=== PATIENT | male | born 1945 | race Caucasian/White ===

== ENCOUNTER → 2017-05-15 | Outpatient (CLI) | payer BC ==
[~2017-05-15] MED LIST: ASP325T PO; CALC-250 PO; CETI10CA PO; CYAN10007 PO; MULT-963 PO; NAPR220C11 PO; OMG1KC PO; PNT40TEC PO; ROSU5TAB PO
== END ==
LOC: CARD 10:38
PROVIDERS: ATTEND Physician Assistant
DX: I35.1 Nonrheumatic aortic (valve) insufficiency (principal); I27.2 Other secondary pulmonary hypertension; E78.2 Mixed hyperlipidemia; R94.31 Abnormal electrocardiogram [ECG] [EKG]
CPT/HCPCS: 93306

== ENCOUNTER 2017-10-02 16:26 | Emergency (ER) | payer BC ==
[~2017-10-02] VITALS: Ht 188 cm; Wt 110.7 kg
[2017-10-02] MEDS ORDERED: ROSU5TAB (16:52)
[2017-10-02] MEDS ORDERED: PANT40TA3 (16:52)
[2017-10-02 18:15] LABS: BASOPHILS % (AUTO) 1 % (0-10); EOSINOPHILS # (AUTO) 0.1 10^3/uL (0.0-0.3); EOSINOPHILS % (AUTO) 3 % (0-10); HEMATOCRIT 43 % (40-54); HEMOGLOBIN 14.4 G/DL (13.3-17.7); LYMPHOCYTES # (AUTO) 0.7 X 10^3 (1.0-4.0); LYMPHOCYTES % (AUTO) 23 % (12-44); MEAN CORPUSCULAR HEMOGLOBIN 31 PG (25-34); MEAN CORPUSCULAR HGB CONC 34 G/DL (32-36); MEAN CORPUSCULAR VOLUME 93 FL (80-99); MEAN PLATELET VOLUME 10.4 FL (7.4-10.4); MONOCYTES # (AUTO) 0.3 X 10^3 (0.0-1.0); MONOCYTES % (AUTO) 10 % (0-12); NEUTROPHILS # (AUTO) 1.8 X 10^3 (1.8-7.8); NEUTROPHILS % (AUTO) 63 % (42-75); PLATELET COUNT 164 10^3/uL (130-400); RED BLOOD COUNT 4.58 10^6/uL (4.35-5.85); RED CELL DISTRIBUTION WIDTH 13.3 % (10.0-14.5); WHITE BLOOD COUNT 2.9 10^3/uL (4.3-11.0)
[2017-10-02 18:18] LABS: INR 1.2 (0.8-1.4); PROTHROMBIN TIME PATIENT 15.3 SEC (12.2-14.7)
--- NOTE | 2017-10-02 18:23 | Diagnostic Imaging Report ---
INDICATION: Left arm pain and numbness. Noncontrast brain CT is performed. FINDINGS: There were no extra-axial fluid collections. No intracranial hemorrhage. No intracranial mass or mass effect. No midline shift. The ventricles are normal in size and position. There were no focal parenchymal abnormalities in the brain. Calvarial windows are unremarkable. IMPRESSION: Negative noncontrast brain CT. Dictated by: Dictated on workstation # [id number]
[2017-10-02 18:28] LABS: ALANINE AMINOTRANSFERASE 20 U/L (0-55); ALBUMIN 3.8 GM/DL (3.2-4.5); ALKALINE PHOSPHATASE 68 U/L (40-136); BILIRUBIN,TOTAL 1.3 MG/DL (0.1-1.0); BUN/CREATININE RATIO 15; CALCIUM 9.3 MG/DL (8.5-10.1); CARBON DIOXIDE 25 MMOL/L (21-32); CHLORIDE 103 MMOL/L (98-107); CREATININE SERUM 1.15 MG/DL (0.60-1.30); GFR ESTIMATED > 60; GLUCOSE 104 MG/DL (70-105); POTASSIUM 4.1 MMOL/L (3.6-5.0); SODIUM 139 MMOL/L (135-145); TOTAL PROTEIN 7.7 GM/DL (6.4-8.2)
--- NOTE | 2017-10-02 18:39 | ED Neurological Problem ---
General Chief Complaint: Cardiac/General Problems Stated Complaint: LT ARM NUMBESS Nursing Triage Note: C/O left arm pain and numbness while driving at 1500. lasted 10 min. no cp nausea sweating no pain at this time Nursing Sepsis Screen: No Definite Risk Source: patient, spouse History of Present Illness Time seen by provider: 18:00 Initial Comments PT ARRIVES VIA POV PRIOR TO MY ARRIVAL PT STATES AROUND 1500 TODAY, HE WAS DRIVING AND HAD NUMBNESS IN LEFT ARM. HAD SOME SLIGHT DIFFICULTY MOVING HIS ARM BECAUSE IT FELT NUMB, BUT NO ACTUAL MOTOR DEFICIT EPISODE LASTED 10 MINUTES AND HAS NOT RETURNED NO PAIN IN ARM NO CHEST PAIN NO SHORTNESS OF BREATH NO PALPITATIONS NO SWEATS NO NAUSEA/VOMITING NO HEADACHE NO VISION CHANGES PCP: DR. ARAIZA TRANSCRIPTION SPECIALIST: DR. BAXTER Allergies and Home Medications Allergies Coded Allergies: No Known Drug Allergies (Unverified , 10/02/17) Home Medications Aspirin 325 Mg Tab, 325 MG PO DAILY, (Reported) Calcium Carbonate/Vitamin D3 1 Each Tablet, 1 EACH PO, (Reported) Cetirizine Hcl 10 Mg Capsule, 10 MG PO, (Reported) Clopidogrel Bisulfate 75 Mg Tablet, 75 MG PO DAILY, #10 Prescribed by: VIOLETA CARRILLO on 10/02/17 1855 Cyanocobalamin 1,000 Mcg Tablet.sa, 1,000 MCG PO, (Reported) Multivitamin 1 Each Tablet, 1 EACH PO, (Reported) Naproxen Sodium 220 Mg Capsule, 220 MG PO PRN, (Reported) Carrie 3 Polyunsat Fatty Acids 1,000 Mg Cap, 1,000 MG PO DAILY, (Reported) Pantoprazole Sodium 40 Mg Tablet.dr, 1 TAB PO DAILY, #30 (Reported) Pantoprazole Sodium 40 Mg Tablet., (Reported) Rosuvastatin Calcium 5 Mg Tablet, 1 EACH PO DAILY, (Reported) Rosuvastatin Calcium 5 Mg Tablet, (Reported) Constitutional: no symptoms reported Eyes: No Symptoms Reported Ears, Nose, Mouth, Throat: no symptoms reported Respiratory: no symptoms reported Cardiovascular: no symptoms reported Gastrointestinal: no symptoms reported Genitourinary: no symptoms reported Musculoskeletal: no symptoms reported Skin: no symptoms reported Psychiatric/Neurological: See HPI, Denies Cognitive Dysfunction, Denies Headache, Numbness Endocrine: No Symptoms Reported Hematologic/Lymphatic: No Symptoms Reported Past Vrdvqct-Rduhlh-Hjzbhz Hx Patient Social History Alcohol Use: Denies Use Recreational Drug Use: No Smoking Status: Former Smoker Type Used: Cigarettes 2nd Hand Smoke Exposure: No Recent Foreign Travel: No Contact w/Someone Who Travel: No Recent Infectious Disease Expo: No Recent Hopitalizations: No Physical Abuse: No Sexual Abuse: No Mistreated: No Fear: No Immunizations Up To Date Tetanus Booster (TDap): Unknown Seasonal Allergies Seasonal Allergies: No Surgeries History of Surgeries: No Respiratory History of Respiratory Disorde: No Cardiovascular History of Cardiac Disorders: Yes (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) Cardiac Disorders: High Cholesterol Neurological History of Neurological Disord: No Genitourinary History of Genitourinary Disor: No Gastrointestinal History of Gastrointestinal Di: Yes Gastrointestinal Disorders: Gastroesophageal Reflux Musculoskeletal History of Musculoskeletal Dis: No Endocrine History of Endocrine Disorders: No HEENT History of HEENT Disorders: No Cancer History of Cancer: No Psychosocial History of Psychiatric Problem: No Suicide Risk Score: 0 Integumentary History of Skin or Integumenta: No Blood Transfusions History of Blood Disorders: Yes (CHRONIC BENIGN NEUTROPENIA) Physical Exam Vital Signs Vital Sign - Last 12Hours 10/02/17 10/02/17 16:28 19:05 Temp 97.7 Pulse 71 Resp 20 B/P (MAP) 127/91 (103) Pulse Ox 97 O2 Delivery Room Air Capillary Refill : Less Than 3 Seconds General Appearance: WD/WN, no apparent distress HEENT: PERRL/EOMI Neck: non-tender, full range of motion, supple, normal inspection, No carotid bruit Respiratory: normal breath sounds, no respiratory distress, no accessory muscle use Cardiovascular: normal peripheral pulses, regular rate, rhythm, no edema, no gallop, no JVD, no murmur Peripheral Pulses: 2+ Dorsalis Pedis (R), 2+ Left Dors-Pedis (L), 2+ Radial Pulses (R), 2+ Radial Pulses (L) Gastrointestinal: normal bowel sounds, non tender, soft, no organomegaly, no pulsatile mass Back: normal inspection Extremities: normal range of motion, non-tender, normal inspection, no pedal edema, no calf tenderness, normal capillary refill 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, no motor/sensory deficits, alert, normal mood/affect, oriented x 3, No abnormal cerebellar tests Crainal Nerves: normal hearing, normal speech, PERRL Coordination/Gait: normal finger to nose, normal gait Motor/Sensory: no motor deficit, no sensory deficit, no pronator drift Reflexes: 2+ Knee (R), 2+ Knee (L), 2+ Ankle (R), 2+ Ankle (L) Skin: normal color, warm/dry Progress/Results/Core Measures Results/Orders Lab Results Laboratory Tests Test 10/02/17 16:40 Range/Units White Blood Count 2.9 L 4.3-11.0 10^3/uL Red Blood Count 4.58 4.35-5.85 10^6/uL Hemoglobin 14.4 13.3-17.7 G/DL Hematocrit 43 40-54 % Mean Corpuscular Volume 93 80-99 FL Mean Corpuscular Hemoglobin 31 25-34 PG Mean Corpuscular Hemoglobin Concent 34 32-36 G/DL Red Cell Distribution Width 13.3 10.0-14.5 % Platelet Count 164 130-400 10^3/uL Mean Platelet Volume 10.4 7.4-10.4 FL Neutrophils (%) (Auto) 63 42-75 % Lymphocytes (%) (Auto) 23 12-44 % Monocytes (%) (Auto) 10 0-12 % Eosinophils (%) (Auto) 3 0-10 % Basophils (%) (Auto) 1 0-10 % Neutrophils # (Auto) 1.8 1.8-7.8 X 10^3 Lymphocytes # (Auto) 0.7 L 1.0-4.0 X 10^3 Monocytes # (Auto) 0.3 0.0-1.0 X 10^3 Eosinophils # (Auto) 0.1 0.0-0.3 10^3/uL Basophils # (Auto) 0.0 0.0-0.1 10^3/uL Prothrombin Time 15.3 H 12.2-14.7 SEC INR Comment 1.2 0.8-1.4 Activated Partial Thromboplast Time 29 24-35 SEC Sodium Level 139 135-145 MMOL/L Potassium Level 4.1 3.6-5.0 MMOL/L Chloride Level 103 98-107 MMOL/L Carbon Dioxide Level 25 21-32 MMOL/L Anion Gap 11 5-14 MMOL/L Blood Urea Nitrogen 17 7-18 MG/DL Creatinine 1.15 0.60-1.30 MG/DL Estimat Glomerular Filtration Rate > 60 BUN/Creatinine Ratio 15 Glucose Level 104 70-105 MG/DL Calcium Level 9.3 8.5-10.1 MG/DL Magnesium Level 2.0 1.8-2.4 MG/DL Total Bilirubin 1.3 H 0.1-1.0 MG/DL Aspartate Amino Transf (AST/SGOT) 23 5-34 U/L Alanine Aminotransferase (ALT/SGPT) 20 0-55 U/L Alkaline Phosphatase 68 40-136 U/L Troponin I < 0.30 <0.30 NG/ML Total Protein 7.7 6.4-8.2 GM/DL Albumin 3.8 3.2-4.5 GM/DL My Orders Orders - GERARDOVIOLETA K DO Saline Lock/Iv-Start (10/02/17 18:08) Monitor-Rhythm Ecg Trace Only (10/02/17 18:08) Cbc With Automated Diff (10/02/17 18:08) Comprehensive Metabolic Panel (10/02/17 18:08) Magnesium (10/02/17 18:08) Protime With Inr (10/02/17 18:08) Partial Thromboplastin Time (10/02/17 18:08) Troponin I (10/02/17 18:08) Ct Head Wo-R/O Stroke (10/02/17 18:08) Clopidogrel Tablet (Plavix Tablet) (10/02/17 19:00) Medications Given in ED Current Medications Medications Dose Ordered Sig/Danial Route Start Time Stop Time Status Last Admin Dose Admin Clopidogrel Bisulfate 75 mg ONCE ONCE PO 10/02/17 19:00 10/02/17 19:01 DC 10/02/17 19:03 75 MG Vital Signs/I&O Vital Sign - Last 12Hours 10/02/17 10/02/17 16:28 19:05 Temp 97.7 97.7 Pulse 71 65 Resp 20 20 B/P (MAP) 127/91 (103) Pulse Ox 97 95 O2 Delivery Room Air Blood Pressure Mean: 103 Progress Note : Progress Note NO SYMPTOMS DURING ER STAY PT STATES HE ONLY TAKES 81 MG ASPIRIN DAILY. ECG Initial ECG Impression Time: 17:08 Initial ECG Rate: 69 Initial ECG Rhythm: Normal Sinus Initial ECG Impression: Nonspecific Changes (IVCD) Diagnostic Imaging Comments CT HEAD--NO ACUTE PROCESS, PER RADIOLOGIST REPORT @ 1838 Reviewed: Reviewed by Me Departure Impression Impression: Primary Impression: TRANSIENT LEFT ARM PARESTHESIAS Additional Impression: Chronic benign neutropenia Disposition: HOME, SELF-CARE Condition: Stable Departure-Patient Inst. Referrals: ARIEL ARAIZA DO (PCP/Family) Primary Care Physician Patient Instructions: Paresthesias (DC) Add. Discharge Instructions: RETURN TO ER IF SYMPTOMS RETURN CONTINUE YOUR REGULAR MEDICATIONS PRESCRIBED FOLLOW UP WITH DR. ARAIZA ON THURSDAY FOR FURTHER CARE All discharge instructions reviewed with patient and/or family. Voiced understanding. Scripts Clopidogrel Bisulfate (Plavix) 75 Mg Tablet 75 MG PO DAILY, #10 TAB Prov: VIOLETA CARRILLO DO 10/02/17 VIOLETA CARRILLO DO Oct 02, 2017 18:39
[2017-10-02] MEDS ORDERED: CLOP75TA69 PO (18:55)
[2017-10-02] MEDS ORDERED: CLOPIDOGREL 75 MG (PLAVIX) TABLET PO ONE (19:00)
[2017-10-02 19:05] VITALS: BP 139/98
== END 2017-10-02 19:06 | disposition home or self-care (01) ==
LOC: EDUNIT# 16:26 → ER 16:27
DX: R20.2 Paresthesia of skin (principal); D70.9 Neutropenia, unspecified; E78.00 Pure hypercholesterolemia, unspecified; K21.9 Gastro-esophageal reflux disease without esophagitis; Z79.82 Long term (current) use of aspirin; Z87.891 Personal history of nicotine dependence
CPT/HCPCS: 36415; 70450; 80053; 83735; 84484; 85025; 85610; 85730; 93005

== ENCOUNTER → 2017-11-25 | Outpatient (CLI) | payer BC ==
[~2017-11-25] VITALS: Ht 185.4 cm; Wt 117.9 kg
[~2017-11-25] MED LIST changes: +CATHETER FLUSH 10 ML SYR IV PRN; +CLOP75TA69 PO; +PANT40TA3; +ROSU5TAB
[2017-11-25 09:30] VITALS: BP 156/110
--- NOTE | 2017-11-26 01:07 | STRESS TEST ---
DATE OF SERVICE: 11/25/2017 EXERCISE MYOVIEW STRESS TEST REPORT REFERRING PHYSICIAN: Sunny Worrell DO. Baseline heart rate is 75. Baseline blood pressure is 122/80. Baseline EKG is sinus rhythm with no ischemic changes. In summary, patient was injected with 10.85 mCi of technetium-99 Myoview and the resting images were obtained. Then, the patient started exercising with a baseline heart rate, blood pressure and EKG mentioned above. He was able to exercise for a total of 6 minutes on standard Kang protocol, achieving maximum heart rate of 124, with peak exercise level. EKG was showing nondiagnostic changes. Blood pressure was 156/110. During recovery, heart rate and blood pressure returned to baseline. EKG returned to baseline. The resting and stress images were reviewed and compared in the short axis, horizontal long axis, and vertical long axis views. Review of the images showed diaphragmatic attenuation with mild decreased uptake at the mid to apical inferior wall with subtle reversibility. SSS is 5, SDS 4, and TID value 0.95. On the gated images, the left ventricle appeared to be normal size with normal contractility. Calculated ejection fraction is 60%. CONCLUSION: 1. Fair exercise tolerance, a total of 6 minutes on standard Kang protocol, total of 7.3 METS, achieving 84% of maximum expected heart rate. 2. Appropriate heart rate and blood pressure response to exercise returned to baseline during recovery. 3. Nondiagnostic EKG changes with exercise returned to baseline during recovery. 4. Diaphragmatic attenuation with mild decreased uptake at the mid to apical inferior wall with subtle reversibility, probably due to diaphragmatic attenuation. 5. Normal left ventricular size with normal contractility. Calculated ejection fraction is 60%. Job ID: [id number] DocumentID: [id number] Dictated Date: 11/25/2017 17:25:22 Mirror Machine Feeder Date: 11/25/2017 22:57:22 Dictated By: ROSEMARIE BAXTER MD
== END ==
LOC: CARD 08:21
PROVIDERS: ATTEND Internal Medicine Cardiovascular Disease
DX: I35.1 Nonrheumatic aortic (valve) insufficiency (principal); R07.89 Other chest pain; I51.9 Heart disease, unspecified; E78.5 Hyperlipidemia, unspecified; R55 Syncope and collapse
CPT/HCPCS: 78452; 93017

== ENCOUNTER → 2019-08-01 | Outpatient (CLI) | payer BC ==
[~2019-08-01] VITALS: Ht 187 cm; Wt 119.0 kg
[2019-08-01 09:45] VITALS: BP 111/89
[2019-08-01 09:52] VITALS: BP 207/112
--- NOTE | 2019-08-01 14:36 | STRESS TEST ---
DATE OF SERVICE: 08/01/2019 EXERCISE MYOVIEW STRESS TEST REPORT REFERRING PHYSICIAN: Dr. Worrell. Baseline heart rate is 64. Baseline blood pressure 111/89. Baseline EKG is sinus rhythm with no ischemic changes. In summary, the patient was injected with 10.10 mCi of technetium-99 Myoview and the resting images were obtained. Then, the patient started exercising with a baseline heart rate, blood pressure and EKG mentioned above. The patient was able to exercise for 6 minutes 45 seconds on standard Kang protocol. With peak exercise level, EKG was showing minimal nondiagnostic changes. Blood pressure 207/112, was injected with 31.2 mCi of technetium-99 Myoview. During recovery, heart rate and blood pressure returned to baseline. EKG returned to baseline. The resting and stress images were reviewed and compared in the short axis, horizontal long axis, and vertical long axis views. Review of the images showed diaphragmatic attenuation with mild decreased uptake involving the mid to apical inferior wall and inferolateral wall with mild reversibility. SSS is 6, SDS 4, TID value 0.8. On the gated images, the left ventricle appeared to be normal size with normal contractility. Calculated ejection fraction 60%. CONCLUSION: 1. Fair exercise tolerance, a total of 6 minutes 45 seconds on standard Kang protocol, total of 8.1 METS achieving 91% of maximum expected heart rate. 2. Severe hypertensive response to exercise with peak blood pressure 207/112, returned to baseline during recovery. 3. Nondiagnostic EKG changes with exercise returned to baseline during recovery. 4. Diaphragmatic attenuation with mild ischemia involving the mid to apical inferior wall and inferolateral wall. 5. Normal left ventricular size with normal contractility. Calculated ejection fraction 60%. Job ID: [id number] DocumentID: [id number] Dictated Date: 08/01/2019 11:46:08 Truant Officer Date: 08/01/2019 14:36:06 Dictated By: ROSEMARIE BAXTER MD
== END ==
LOC: CARD 08:15
PROVIDERS: ATTEND Internal Medicine Cardiovascular Disease
DX: I25.9 Chronic ischemic heart disease, unspecified (principal); I51.7 Cardiomegaly; E78.5 Hyperlipidemia, unspecified; I35.1 Nonrheumatic aortic (valve) insufficiency
CPT/HCPCS: 78452; 93017; 93306

== ENCOUNTER 2019-08-05 06:50 | Day surgery (SDC) | payer BC ==
[2019-08-05] VITALS (13 sets, daily range): BP systolic 112–153; BP diastolic 72–94
[~2019-08-05] VITALS: Ht 188 cm; Wt 118.0 kg
[~2019-08-05 06:50] MED LIST changes: -CATHETER FLUSH 10 ML SYR IV PRN; -PANT40TA3; +PANT40TA3 PO; -ROSU5TAB
[2019-08-05] MEDS ORDERED: HEParin (CATH LAB) 2,000 ML IV ONE (06:52)
[2019-08-05] MEDS ORDERED: LIDOCAINE 1% INJ 20 ML 20 ML VIAL ONE (06:52)
[2019-08-05] MEDS ORDERED: NS IV 1000 ML 1,000 ML ONE (06:52)
[2019-08-05] MEDS ORDERED: NS IV 1000 ML 1,000 ML IV SCH (07:00)
--- NOTE | 2019-08-05 07:10 | Diagnostic Imaging Report ---
INDICATION: Abnormal stress, hypertension, hyperlipidemia, congestive heart failure. TECHNIQUE: Single view chest 7:03 AM. CORRELATION STUDY: None FINDINGS: Heart size is enlarged. Mediastinum compression relatively unremarkable. Vasculature within normal limits. Limited depth of inspiration with bibasilar areas of likely atelectasis. IMPRESSION: 1. Cardiac enlargement without overt failure. Bibasilar areas of atelectasis. Trace effusions on excluded. Dictated by: Dictated on workstation # [id number]
[2019-08-05 07:19] LABS: HEMOGLOBIN 14.5 G/DL (13.3-17.7); RED CELL DISTRIBUTION WIDTH 13.6 % (10.0-14.5); WHITE BLOOD COUNT 3.7 10^3/uL (4.3-11.0)
[2019-08-05] MEDS ORDERED: MIDAZOLAM 5 MG/5 ML (VERSED) VIAL ONE (07:28)
[2019-08-05] MEDS ORDERED: fentaNYL INJECTION 100 MCG/2 ML AMP ONE (07:28)
[2019-08-05] MEDS ORDERED: HEParin 1000 UNIT/ML (10ML VIAL) FOR BOLUS ONE (07:29)
[2019-08-05] MEDS ORDERED: VERAPAMIL 5 MG/2 ML (CALAN) VIAL IV ONE (07:29)
[2019-08-05] MEDS ORDERED: NITRO DRIP 25000 MCG/D5W 250 ML IV ONE (07:29)
[2019-08-05 07:31] LABS: INR 1.2 (0.8-1.4); PROTHROMBIN TIME PATIENT 15.3 SEC (12.2-14.7)
[2019-08-05] MEDS ORDERED: CETI10TA17 PO (07:32)
[2019-08-05] MEDS ORDERED: CHOL20002 PO (07:32)
[2019-08-05] MEDS ORDERED: ASPI-983 PO (07:32)
[2019-08-05] MEDS ORDERED: OMEG1CAP24 PO (07:36)
[2019-08-05] MEDS ORDERED: NAPR-1033 PO (07:36)
[2019-08-05] MEDS ORDERED: CYAN500T52 SL (07:36)
[2019-08-05] MEDS ORDERED: SILD100T PO (07:37)
[2019-08-05] MEDS ORDERED: VITA-240 PO (07:38)
[2019-08-05 07:39] LABS: ALANINE AMINOTRANSFERASE 18 U/L (0-55); ALKALINE PHOSPHATASE 66 U/L (40-136); BILIRUBIN,TOTAL 1.3 MG/DL (0.1-1.0); BUN/CREATININE RATIO 11; CALCIUM 9.5 MG/DL (8.5-10.1); CARBON DIOXIDE 21 MMOL/L (21-32); CHLORIDE 106 MMOL/L (98-107); CREATININE SERUM 1.07 MG/DL (0.60-1.30); GFR ESTIMATED > 60; GLUCOSE 91 MG/DL (70-105); POTASSIUM 3.8 MMOL/L (3.6-5.0); SODIUM 138 MMOL/L (135-145); TOTAL PROTEIN 7.7 GM/DL (6.4-8.2)
[2019-08-05] MEDS ORDERED: methylPREDNISolone 125 MG (Solu-MEDROL) VIAL ONE (07:55)
[2019-08-05] MEDS ORDERED: diphenhydrAMINE 50 MG/ML INJ (BENADRYL) ONE (07:55)
[2019-08-05] MEDS ORDERED: NS (IVPB) 0 ML ONE (08:53)
[2019-08-05] MEDS ORDERED: ATROPINE INJECTION 1 MG/10 ML SYR (ABBOTT) ONE (08:53)
[2019-08-05] MEDS ORDERED: niCARdipine 25 MG/10 ML (CARDENE) AMP IV ONE (08:53)
[2019-08-05] MEDS ORDERED: TICAGRELOR 90 MG TABLET (BRILINTA) PO ONE (09:18)
[2019-08-05] MEDS ORDERED: ASPIRIN 325 MG (5 GR) TABLET ONE (09:18)
--- NOTE | 2019-08-05 09:19 | Cardiac Procedure Note-CS/ASA ---
Pre-Procedure Note Pre-Op Procedure Note H&P Reviewed The H&P was reviewed, patient examined and no changes noted. Date H&P Reviewed: Aug 05, 2019 Time H&P Reviewed: 09:19 Conscious Sedation Pre-Proced Time 09:19 ASA Score 3 For ASA 3 and 4: Consider anesthesia and medical clearance. Also, for patients with a history of failed moderate sedation consider anesthesia. Airway Lungs Heart ASA score ASA 1: a normal healthy patient ASA 2: a patient with a mild systemic disease (mid diabetes, controlled hypertension, obesity x ASA 3: a patient with a severe systemic disease that limits activity (angina, COPD, prior Myocardial infarction) ASA 4: a patient with an incapacitating disease that is a constant threat to life (CHF, renal failure) ASA 5: a moribund patient not expected to survive 24 hrs. (ruptured aneurysm) ASA 6: a declared brain- patient whose organs are being harvested. For emergent operations, add the letter E after the classification Mallampati Classification Grade 3 Sedation Plan Analgesia, Amnesia, Plan communicated to team members, Discussed options with patient/fam, Discussed risks with patient/fam The patient is an appropriate candidate to undergo the planned procedure, sedation, and anesthesia. The patient immediately re-assessed prior to indication. ROSEMARIE BAXTER MD Aug 05, 2019 09:19 POS
--- NOTE | 2019-08-05 09:28 | Cardiac Cath Report ---
Cardiac Cath Report Physician (s)/Urology Nurse (s) Physician ROSEMARIE BAXTER MD Pre-Procedure Diagnosis Pre-Procedure Diagnosis: Coronary artery disease Post-Procedure Note Procedure Start Date: Aug 05, 2019 Name of Procedure: Left heart catheterization Aortic root angiogram Stent to the right coronary artery Findings/Procedure Note PROCEDURE NOTE: 73 years old gentleman with history of hypertension and hyperlipidemia, had an abnormal stress test, scheduled for cardiac catheterization possible PTCA. After explaining the procedure to the patient, all pros and cons were explained, all questions were answered. The patient signed the consent and then he was placed on the cardiac catheterization laboratory. Groin was prepped SL fashion local anesthesia was used. Sheath placed in the right radial artery, had difficulty advancing the catheter through the aorta, advance the catheter all the way through the sheath and I can barely reached the coronary system, it was not turning well with manipulation. I did not selective angiogram to the right and left coronary system at that point patient appeared to have significant lesions in the right coronary artery and the LAD I decided to proceed with Vin and access. 6 Czech sheath was placed in the right femoral artery, Erika left catheter was advanced to the left coronary artery, again I had to advance the Erika left through the groin all the way up to the sheath to reach the coronary system, angiogram was done then I advanced Erika right guide to the right coronary system, patient received total of 7000 units of heparin, BMW wire was advanced through the right coronary artery has severe stenosis at the midportion, I was able to advance a balloon easily and predilated the lesion then I had difficulty advancing the stent, I used Frances 3.5 x 18 mm expanded to 3.66 mm under 16 edward, I tried noncompliant balloon and 4.0 balloon and I was unable to advance them through the proximal portion of the right coronary artery. At that point I decided to stop angiogram showed excellent results. Advanced pigtail catheter for the left ventricular cavity, pressure was measured then back LV to aorta was done and I evaluated the aortic root which showed prominent aortic root and ascending aorta. No aneurysm was noted. At the end of the procedure the sheath was removed. Closure device was used FINDINGS: Hemodynamics LV 126/24, end-diastolic pressure of 24 Aorta 141/84 mean of 108 ANATOMY: Left Main is mildly aneurysmal with slow flow nonobstructive disease Left Anterior Descending has moderate diffuse ectasia with severe stenosis at the midportion involving small diagonal and septal branches, distally there is also a severe stenosis that will be treated at a later point Left Circumflex is moderate in size with no obstructive disease Right Coronory Artery is large dominant artery with diffuse ectasia, severe stenosis at the midportion successful complex procedure with balloon angioplasty then deployment of Frances 3.5 x 18 mm expanded to 3.6 mm with excellent results LV Gram was not done, pressure was measured Aorta evaluation showed prominent aortic root and aortic cusp and ascending aorta, no dissection was noted. CONCLUSION: 1. 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 Severe stenosis in a dominant right coronary artery, successful complex procedure with balloon angioplasty then deployment of 3.5 x 18 Frances stent expanded to 3.6 mm with excellent results, I was unable to advance a 4.0 balloon in the proximal portion of the right coronary artery due to the ectasia and the angle of the proximal portion 3. Prominent aortic root and ascending aorta and aortic arch. 4. Mildly elevated left ventricular end-diastolic pressure DISCUSSION AND RECOMMENDATION: patient was started on aspirin and Brilinta, I will continue maximizing medical therapy, planning to evaluate the LAD and possible intervention at a later point, I will consider referral to a tertiary care center Anesthesia Type: Conscious Sedation Estimated blood loss (mL): 35 ml Contrast Amount: 165 ml Total Radiation Dose: 1993 mGy Post-Procedure Diagnosis Post-operative diagnosis: Chest pain Coronary artery disease Hypertension Hyperlipidemia ROSEMARIE BAXTER MD Aug 05, 2019 09:28 POS
[2019-08-05] MEDS ORDERED: NON-FORMULARY MEDICATION 1 EA EA (Cetirizine HCl 10 MG) PO PRN (09:30)
[2019-08-05] MEDS ORDERED: PATIENT MAY USE OWN MEDS, ALL PO SCH (09:30)
[2019-08-05] MEDS ORDERED: LORATADINE (CLARITIN) 10 MG TAB PO PRN (10:30)
--- NOTE | 2019-08-05 11:13 | NUR ---
SPOKE WITH THE PT WELL CALLING [facility] TO COMPLETE THE MED REC. PT (AND HIS ) WERE ABLE TO TELL ME HOW HE TAKES ALL HIS MEDICATIONS. THE FOLLOWING ARE FILL DATES FROM [facility]: 05-12-2019 VIAGRA #6/USES PRN 07-14-2019 PANTOPRAZOLE #30/30DS 07-14-2019 ROSUVASTATIN #DS OTC MEDS: ASPIRIN CETIRIZINE VIT D VIT B12 VIT E NAPROXEN FISH OIL
--- NOTE | 2019-08-05 15:37 | NUR ---
Pt is Sabianism. Stretcher Drier Operator provided prayer and Communion.
[2019-08-05] MEDS ORDERED: OMEGA 3 (FISH OIL) 1000 MG CAP PO SCH (17:00)
[2019-08-05] MEDS: NS IV 1000 ML 1,000 ML IV SCH ×2 (19:19→19:38)
[2019-08-05] MEDS ORDERED: ROSUVASTATIN 5 MG (CRESTOR) TABLET PO SCH (21:00)
[2019-08-05] MEDS ORDERED: TICAGRELOR 90 MG TABLET (BRILINTA) PO SCH (21:00)
[2019-08-06 03:28] LABS: HEMOGLOBIN 14.1 G/DL (13.3-17.7); RED CELL DISTRIBUTION WIDTH 13.8 % (10.0-14.5); WHITE BLOOD COUNT 7.4 10^3/uL (4.3-11.0)
[2019-08-06 03:53] LABS: BUN/CREATININE RATIO 16; CALCIUM 9.3 MG/DL (8.5-10.1); CARBON DIOXIDE 20 MMOL/L (21-32); CHLORIDE 108 MMOL/L (98-107); GFR ESTIMATED > 60; GLUCOSE 129 MG/DL (70-105); POTASSIUM 4.1 MMOL/L (3.6-5.0); SODIUM 136 MMOL/L (135-145)
[2019-08-06 03:55] VITALS: BP 118/74
[2019-08-06] MEDS ORDERED: TICA90TA PO (04:18)
--- NOTE | 2019-08-06 04:21 | Cardiology Progress Note ---
Subjective Date Seen by Provider: Aug 06, 2019 Time Seen by Provider: 04:18 Subjective/Events-last exam Patient is laying down in bed, feeling well. Groin is healing well Review of Systems General: No Chills, No Night Sweats, No Fatigue, No Malaise, No Appetite, No Other HEENT: No Head Aches, No Visual Changes, No Eye Pain, No Ear Pain, No Dysphasia, No Sinus Congestion, No Post Nasal Drip, No Sore Throat, No Other Pulmonary: No Dyspnea, No Cough, No Pleuritic Chest Pain, No Other Cardiovascular: No: Chest Pain, Palpitations, Orthopnea, Paroxysmal Noc. Dyspnea, Edema, Lt Headedness, Other Objective-Cardiology Exam Last Set of Vital Signs Vital Signs 08/06/19 03:55 Temp 37.0 Pulse 85 Resp 20 B/P (MAP) 118/74 (89) Pulse Ox 94 O2 Delivery Room Air Capillary Refill : Less Than 3 Seconds I&O Intake and Output 08/06/19 00:00 Intake Total 1000 ml Balance 1000 ml Intake IV Total 1000 ml General: Alert, Oriented X3, Cooperative HEENT: Atraumatic, PERRLA Neck: Supple, No JVD, No Thyromegaly Lungs: Clear to Auscultation, Normal Air Movement Heart: Regular Rate, Normal S1, Normal S2, No Murmurs Abdomen: Normal Bowel Sounds, Soft, No Tenderness, No Hepatosplenomegaly, No Masses Extremities: No Clubbing, No Cyanosis, No Edema, Normal Pulses, No Tenderness/Swelling Skin: No Rashes, No Breakdown, No Significant Lesion Neuro: Normal Gait, Normal Speech, Strength at 5/5 X4 Ext, Normal Tone, Sensation Intact Psych/Mental Status: Mental Status NL, Mood NL Results Lab Laboratory Tests 08/05/19 07:08 08/06/19 03:10 A/P-Cardiology Admission Diagnosis Chest pain Coronary artery disease Hypertension Hyperlipidemia Assessment/Plan Chest pain, improved Coronary artery disease, status post cardiac catheterization and stenting to the right coronary artery, will need to have staged intervention to the LAD, probably need tertiary care center Cath findings: 1. 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 Severe stenosis in a dominant right coronary artery, successful complex procedure with balloon angioplasty then deployment of 3.5 x 18 Frances stent expanded to 3.6 mm with excellent results, I was unable to advance a 4.0 balloon in the proximal portion of the right coronary artery due to the ectasia and the angle of the proximal portion 3. Prominent aortic root and ascending aorta and aortic arch. 4. Mildly elevated left ventricular end-diastolic pressure Hypertension, monitor blood pressure Hyperlipidemia, maintained on Crestor, continue to monitor History of anaphylactic shock, blood pressure stable Mild bilateral carotid stenosis ROSEMARIE BAXTER MD Aug 06, 2019 04:21 POS
--- NOTE | 2019-08-06 04:25 | Discharge Inst-Post CATH ---
Discharge Inst-CATH/EP Problems Reviewed?: Yes Post Cardiac Cath/EP D/C Inst Follow Up/Plan Appointment with Dr. BAXTER's office in 2-4 weeks <b>CARDIAC CATH/EP PROCEDURE DISCHARGE INSTRUCTIONS</b> ACTIVITY * Go Home directly and rest. * Limit activity of the leg (or wrist if it was used) for 7 days including aerobics, swimming, jogging, bicycling, etc. * Restrict stair-climbing for 7 days if possible, if not, climb up with your non-cath leg, then bring together on the same step. * Avoid lifting, pushing, pulling or excessive movement of the affected extremity for 7 days. * Customary sexual activity may be resumed after 2 days-use caution not to use a position that strains or causes pain to the affected extremity. * No driving for 24 hours. * NO SMOKING. * Avoid straining for bowel movements for 7 days. * Gentle walking on level ground is allowed. * Returning to work will depend on the type of procedure and the results. Your doctor will discuss this with you. CALL YOUR DOCTOR FOR ANY OF THE FOLLOWING: *If bleeding from the puncture site occurs- Apply gentle pressure to site with clean cloth and call your doctor or EMS. * If a knot or lump forms under the skin, increases in size, or causes pain. * If bruising appears to be worsening or moving further down your leg instead of disappearing. * Temperature above 101 F. CARE OF YOUR GROIN INCISION; * Bruising or purple discoloration of the skin near the puncture site is common. * You may shower only, no bathtub bathing for 5 days. Be careful to avoid slipping as your leg may feel stiff. * If a closure device was used on your femoral artery, please see the attached guide regarding care of the device and your leg. * Leave dressing on FOR 24 hours. CARE OF YOUR WRIST INCISION; * Bruising or purple discoloration of the skin near the puncture site is common. * You may shower. * DO NOT submerge wrist. * Leave dressing on FOR 24 hours. ROSEMARIE BAXTER MD Aug 06, 2019 04:25 POS
[2019-08-06] MEDS: NS IV 1000 ML 1,000 ML IV SCH (05:20)
[2019-08-06] MEDS ORDERED: PANTOPRAZOLE 40 MG (PROTONIX) TAB PO SCH (07:00)
[2019-08-06 08:00] VITALS: BP 118/70
[2019-08-06] MEDS ORDERED: ASPIRIN E.C. 81 MG (ECOTRIN) TAB PO SCH (09:00)
[2019-08-06 09:20] VITALS: BP 118/68
== END 2019-08-06 09:30 | disposition home or self-care (01) ==
LOC: CATH 06:50 → CSD 10:05 → CATH 08-06 09:30
PROVIDERS: ATTEND Internal Medicine Cardiovascular Disease
DX: I25.10 Atherosclerotic heart disease of native coronary artery without angina pectoris (principal); E78.5 Hyperlipidemia, unspecified; R94.39 Abnormal result of other cardiovascular function study; I11.0 Hypertensive heart disease with heart failure; I50.30 Unspecified diastolic (congestive) heart failure; I27.20 Pulmonary hypertension, unspecified; I35.1 Nonrheumatic aortic (valve) insufficiency; Z88.3 Allergy status to other anti-infective agents; Z79.82 Long term (current) use of aspirin; Z80.9 Family history of malignant neoplasm, unspecified; Z82.49 Family history of ischemic heart disease and other diseases of the circulatory system; Z79.899 Other long term (current) drug therapy
CPT/HCPCS: 36415; 71045; 80048; 80053; 85027; 85610; 85730; 87081; 93005; 93458; 93567

== ENCOUNTER 2019-12-02 09:58 | Outpatient (RCR) | payer BC ==
[~2019-12-02 09:58] MED LIST changes: +ASPI-983 PO; +CETI10TA17 PO; +CHOL20002 PO; +CYAN500T52 SL; +NAPR-1033 PO; +OMEG1CAP24 PO; +SILD100T PO; +TICA90TA PO; +VITA-235 PO
== END 2020-01-17 | disposition home or self-care (01) ==
LOC: CR 09:58
PROVIDERS: ATTEND Internal Medicine Cardiovascular Disease
DX: Z48.812 Encounter for surgical aftercare following surgery on the circulatory system (principal); Z95.5 Presence of coronary angioplasty implant and graft
CPT/HCPCS: 93798

== ENCOUNTER → 2020-12-28 | Outpatient (CLI) | payer BC ==
[~2020-12-28] MED LIST changes: +ASPI-1238 PO; -ASPI-983 PO; -PANT40TA3 PO; +PANT40TA52 PO; -VITA-235 PO; +VITA-261 PO
== END ==
LOC: CARD 14:43
PROVIDERS: ATTEND Internal Medicine Cardiovascular Disease
DX: I11.9 Hypertensive heart disease without heart failure (principal); I35.0 Nonrheumatic aortic (valve) stenosis
CPT/HCPCS: 93306

== ENCOUNTER → 2021-01-23 | Outpatient (CLI) | payer BC ==
[~2021-01-23] VITALS: Ht 187 cm; Wt 98.0 kg
[~2021-01-23] MED LIST changes: +CATHETER FLUSH 10 ML SYR IV PRN; +REGADENOSON 0.4 MG/5 ML SYR (LEXISCAN) IV ONE
[2021-01-23 09:26] VITALS: BP 136/90
--- NOTE | 2021-01-23 14:41 | Cardiology Stress Test Report ---
Stress Test Report Date of Procedure/Referring: Date of Procedure: January 23, 2021 PCP Rosemarie Mark MD Admitting Physician Sunny Worrell DO Indications: HTN Baseline Heart Rate: 70 Baseline Blood Pressure: Blood Pressure Systolic: 136 Blood Pressure Diastolic: 90 Baseline Vitals Vital Signs Date Time Temp Pulse Resp B/P (MAP) Pulse Ox O2 Delivery O2 Flow Rate FiO2 01/23/21 09:26 70 136/90 (105) 97 Baseline EKG: Baseline EKG: NSR Summary After explaining the procedure to the patient, he signed a consent and then brought to the stress nuclear laboratory. Patient received 0.4 mg Lexiscan for stress test, ECG, heart rate and blood pressure were monitored continuously. Resting and stress dose of radio tracer were injected, imaging was acquired and reviewed in short axis, horizontal long axis and vertical long axis views. TID: 1.08 SSS: 11 SDS: 9 EF: 50 1. Patient tolerated Lexiscan well 2. Reversible ischemia involving the anterior wall anterior apical segment and inferoapical segment 3. Normal left ventricular size, EF 50% ROSEMARIE MARK MD January 23, 2021 14:41
== END ==
LOC: CARD 08:00
PROVIDERS: ATTEND Internal Medicine Cardiovascular Disease
DX: I10 Essential (primary) hypertension (principal); R07.9 Chest pain, unspecified
CPT/HCPCS: 78452; 93017; A9502

== ENCOUNTER 2021-02-01 09:00 | Day surgery (SDC) | payer BC ==
[2021-02-01] VITALS (11 sets, daily range): BP systolic 112–136; BP diastolic 79–94
[~2021-02-01] VITALS: Ht 188 cm; Wt 118.0 kg
--- NOTE | 2021-02-01 07:58 | Conscious Sedation/ASA ---
Conscious Sedation Pre-Proced Time 07:58 ASA Score 3 For ASA 3 and 4: Consider anesthesia and medical clearance. Also, for patients with a history of failed moderate sedation consider anesthesia. Airway Lungs Heart ASA score ASA 1: a normal healthy patient ASA 2: a patient with a mild systemic disease (mid diabetes, controlled hypertension, obesity x ASA 3: a patient with a severe systemic disease that limits activity (angina, COPD, prior Myocardial infarction) ASA 4: a patient with an incapacitating disease that is a constant threat to life (CHF, renal failure) ASA 5: a moribund patient not expected to survive 24 hrs. (ruptured aneurysm) ASA 6: a declared brain- patient whose organs are being harvested. For emergent operations, add the letter E after the classification Mallampati Classification Grade 3 Sedation Plan Analgesia, Amnesia, Plan communicated to team members, Discussed options with patient/fam, Discussed risks with patient/fam The patient is an appropriate candidate to undergo the planned procedure, sedation, and anesthesia. The patient immediately re-assessed prior to indication. ROSEMARIE BAXTER MD February 01, 2021 07:58
[2021-02-01 07:59] LABS: HEMATOCRIT 51 % (40-54); HEMOGLOBIN 16.1 g/dL (13.3-17.7); MEAN CORPUSCULAR HEMOGLOBIN 31 pg (25-34); MEAN CORPUSCULAR HGB CONC 32 g/dL (32-36); MEAN CORPUSCULAR VOLUME 96 fL (80-99); MEAN PLATELET VOLUME 10.1 fL (9.0-12.2); PLATELET COUNT 196 10^3/uL (130-400); WHITE BLOOD COUNT 3.6 10^3/uL (4.3-11.0)
[2021-02-01 08:11] LABS: BILIRUBIN,TOTAL 1.1 MG/DL (0.1-1.0); CALCIUM 9.6 MG/DL (8.5-10.1); CREATININE SERUM 1.23 MG/DL (0.60-1.30); POTASSIUM 3.8 MMOL/L (3.6-5.0); TOTAL PROTEIN 8.4 GM/DL (6.4-8.2)
[2021-02-01 08:13] LABS: INR 1.2 (0.8-1.4); PROTHROMBIN TIME PATIENT 15.3 SEC (12.2-14.7)
--- NOTE | 2021-02-01 08:13 | Discharge Inst-Post CATH ---
Discharge Inst-CATH/EP Problems Reviewed?: Yes Post Cardiac Cath/EP D/C Inst Follow Up/Plan Appointment with Dr Mark's office in 2-4 weeks <b>CARDIAC CATH/EP PROCEDURE DISCHARGE INSTRUCTIONS</b> ACTIVITY * Go Home directly and rest. * Limit activity of the leg (or wrist if it was used) for 7 days including aerobics, swimming, jogging, bicycling, etc. * Restrict stair-climbing for 7 days if possible, if not, climb up with your non-cath leg, then bring together on the same step. * Avoid lifting, pushing, pulling or excessive movement of the affected extremity for 7 days. * Customary sexual activity may be resumed after 2 days-use caution not to use a position that strains or causes pain to the affected extremity. * No driving for 24 hours. * NO SMOKING. * Avoid straining for bowel movements for 7 days. * Gentle walking on level ground is allowed. * Returning to work will depend on the type of procedure and the results. Your doctor will discuss this with you. CALL YOUR DOCTOR FOR ANY OF THE FOLLOWING: *If bleeding from the puncture site occurs- Apply gentle pressure to site with clean cloth and call your doctor or EMS. * If a knot or lump forms under the skin, increases in size, or causes pain. * If bruising appears to be worsening or moving further down your leg instead of disappearing. * Temperature above 101 F. CARE OF YOUR GROIN INCISION; * Bruising or purple discoloration of the skin near the puncture site is common. * You may shower only, no bathtub bathing for 5 days. Be careful to avoid slipping as your leg may feel stiff. * If a closure device was used on your femoral artery, please see the attached guide regarding care of the device and your leg. * Leave dressing on FOR 24 hours. CARE OF YOUR WRIST INCISION; * Bruising or purple discoloration of the skin near the puncture site is common. * You may shower. * DO NOT submerge wrist. * Leave dressing on FOR 24 hours. ROSEMARIE MARK MD February 01, 2021 8:13 am
--- NOTE | 2021-02-01 08:17 | Cardiac Cath Report ---
Cardiac Cath Report Physician (s)/Manufacturing Quality Technician (s) Physician ROSEMARIE BAXTER MD Pre-Procedure Diagnosis Pre-Procedure Diagnosis: Coronary artery disease Post-Procedure Note Procedure Start Date: February 01, 2021 Name of Procedure: Left heart catheterization Left ventriculogram Aortic arch angiogram Findings/Procedure Note PROCEDURE NOTE: 75-year-old gentleman with history of coronary artery disease, multiple interventions, had an abnormal stress test. Scheduled for cardiac catheterization. After explaining the procedure to the patient, all pros and cons were explained, all questions were answered. The patient signed the consent and then he was placed on the cardiac catheterization laboratory. Groin was prepped SL fashion local anesthesia was used. Sheath placed in the right femoral artery. Erika right and left catheter were used to access the coronary system. Pigtail was used to access the left ventricular cavity. Left ventriculogram was done Aortic arch angiogram was done to evaluate the aorta due to the diffuse ectasia noted At the end of the procedure the sheath was removed. Closure device was deployed FINDINGS: Hemodynamics LV 102/11, end-diastolic pressure of 11 Aorta 114/66 mean of 87 ANATOMY: Left Main is free of obstructive disease Left Anterior Descending has moderate ectasia, stent in the proximal LAD is patent, slow flow distally Left Circumflex has mild disease nonobstructive disease Right Coronary Artery has diffuse ectasia with patent stent in the mid right coronary artery, slow flow distally due to small vessel disease LV Gram was done showing normal left ventricular size, normal systolic function, EF 50% Aorta evaluation done with aortic arch angiogram showing slightly prominent aortic arch, no dissection was noted. The brachiocephalic artery is a tortuous artery with no obstructive disease, tortuosity in the left carotid artery with no obstructive disease, no obstructive disease in the left subclavian artery CONCLUSION: 1. Mild to moderate coronary ectasia with patent stent in the proximal LAD and slow flow distally, patent stent in the right coronary artery with diffuse ectasia and slow flow distally due to small vessel disease, mild disease in the circumflex artery 2. Normal left ventricular size and systolic function, EF 50% 3. Normal aortic arch, tortuous neck vessels with no obstructive disease DISCUSSION AND RECOMMENDATION: Anesthesia Type: Conscious Sedation Estimated blood loss (mL): 15 ml Contrast Amount: 62 ml Total Radiation Dose: 643 mGy Post-Procedure Diagnosis Post-operative diagnosis: Coronary artery disease Hypertension Hyperlipidemia Chest pain ROSEMARIE BAXTER MD February 01, 2021 8:17 am
--- NOTE | 2021-02-01 08:48 | Diagnostic Imaging Report ---
CLINICAL INDICATION: Patient with abnormal stress test, coronary artery disease and hypertension. EXAM: Portable chest x-ray upright view. COMPARISONS: Chest x-ray dated 08/05/2019. FINDINGS: Stable mild cardiomegaly. There is no significant pulmonary vascular congestion. There is mild atelectasis in right lung base again seen. There is mild left basilar atelectasis versus infiltrate noted. Left costophrenic angle region is obscured and pleural effusion cannot be completely excluded. There is no pneumothorax. There are degenerative spurs involving the spine. IMPRESSION: 1: There is stable cardiomegaly with no significant pulmonary vascular congestion. 2: There is stable right basilar atelectasis versus scarring. 3: There is mild left basilar atelectasis versus infiltrate. 4: Left pleural effusion cannot be completely excluded. Dictated by: Dictated on workstation # [id number]
[~2021-02-01 09:00] MED LIST changes: -CATHETER FLUSH 10 ML SYR IV PRN; +HEParin (CATH LAB) 2,000 ML IV ONE; +LIDOCAINE 1% INJ 20 ML 20 ML VIAL ONE; +MIDAZOLAM 5 MG/5 ML (VERSED) VIAL ONE; +NS IV 1000 ML 1,000 ML IV SCH; +NS IV 1000 ML 1,000 ML ONE; +PATIENT MAY USE OWN MEDS, ALL PO SCH; -REGADENOSON 0.4 MG/5 ML SYR (LEXISCAN) IV ONE; +VITAMIN D PO; +VITAMIN E 180 MG PO; +diphenhydrAMINE 50 MG/ML INJ (BENADRYL) ONE; +fentaNYL INJ 100 MCG/2 ML AMP ONE; +methylPREDNISolone 125 MG (Solu-MEDROL) VIAL ONE
== END 2021-02-01 12:50 ==
LOC: CATH 09:00
PROVIDERS: ATTEND Internal Medicine Cardiovascular Disease
DX: I25.10 Atherosclerotic heart disease of native coronary artery without angina pectoris (principal); I11.9 Hypertensive heart disease without heart failure; I25.89 Other forms of chronic ischemic heart disease; E78.5 Hyperlipidemia, unspecified; I35.1 Nonrheumatic aortic (valve) insufficiency; E78.2 Mixed hyperlipidemia; I27.20 Pulmonary hypertension, unspecified; I65.23 Occlusion and stenosis of bilateral carotid arteries; Z79.82 Long term (current) use of aspirin; Z95.5 Presence of coronary angioplasty implant and graft; Z98.890 Other specified postprocedural states; Z79.899 Other long term (current) drug therapy; Z88.8 Allergy status to other drugs, medicaments and biological substances
CPT/HCPCS: 36221; 71045; 80053; 80061; 85027; 85610; 85730; 87081; 93458; C1760; C1894; 36415

== ENCOUNTER → 2022-05-23 | Outpatient (CLI) | payer BC ==
[~2022-05-23] MED LIST changes: -HEParin (CATH LAB) 2,000 ML IV ONE; -LIDOCAINE 1% INJ 20 ML 20 ML VIAL ONE; -MIDAZOLAM 5 MG/5 ML (VERSED) VIAL ONE; -NS IV 1000 ML 1,000 ML IV SCH; -NS IV 1000 ML 1,000 ML ONE; -PATIENT MAY USE OWN MEDS, ALL PO SCH; -diphenhydrAMINE 50 MG/ML INJ (BENADRYL) ONE; -fentaNYL INJ 100 MCG/2 ML AMP ONE; -methylPREDNISolone 125 MG (Solu-MEDROL) VIAL ONE
== END ==
LOC: CARD 11:00
PROVIDERS: ATTEND Internal Medicine Cardiovascular Disease
DX: I35.0 Nonrheumatic aortic (valve) stenosis (principal); I10 Essential (primary) hypertension
CPT/HCPCS: 93306